=== PATIENT | female | born 1965 | race Caucasian/White ===

== ENCOUNTER 2021-08-26 08:09 | Emergency (ER) | payer OTHER ==
[~2021-08-26] VITALS: Ht 167.6 cm; Wt 93.0 kg
[2021-08-26] MEDS ORDERED: CELEBREX 200 M200 M1 PO (08:26)
[2021-08-26] MEDS ORDERED: LIPITOR 20 MG T20 M1 PO (08:27)
[2021-08-26] MEDS ORDERED: AMITRIPTYLINE H25 M3 PO (08:27)
[2021-08-26] MEDS ORDERED: NEURONTIN300 MG PO (08:28)
[2021-08-26] MEDS ORDERED: LISINOPRIL20 MG PO (08:28)
[2021-08-26] MEDS ORDERED: OMEPRAZOLE40 MG PO (08:28)
--- NOTE | 2021-08-26 10:54 | EKG ---
[place] [address] ELECTROCARDIOGRAM REPORT Name: ASHLEY LIM Room: [facility]#: [id number] Admission: 08/26/21 Attend Phys: Discharge: Date of : 65 Date of Service: 08/26/21 1036 Report #: [id number] THIS REPORT FOR: //name// [facility] ED Test Date: 2021-08-26 Test Time: 10:36:35 Pat Name: ASHLEY LIM Department: Room: Gender: F [employer]: : 1965 Requested By: [place] Order Number: [id number] MD: Mark Sadler Measurements Intervals Ernest Rate: 69 P: 23 NC: 170 QRS: 5 QRSD: 103 T: 11 QT: 394 QTc: 422 Interpretive Statements Sinus rhythm Low voltage, precordial leads Baseline wander in lead(s) I,III,aVR,aVL No previous ECG available for comparison Electronically Signed On 08-26-2021 10:54:38 [employer] WORK[employer] by Mark Sadler [email or web address] <ELECTRONICALLY SIGNED> By: Mark Sadler MD, [facility] 08/26/21 1054 1036 1036 Mark Sadler MD, [facility] /EPI
[2021-08-26 11:08] LABS: ABSOLUTE EOSINOPHILS 0.1 thou/uL (0.0-0.7); ABSOLUTE LYMPHOCYTES 1.2 thou/uL (0.8-5.3); ABSOLUTE MONOCYTES 0.5 thou/uL (0.0-1.2); ABSOLUTE NEUTROPHILS 8.1 thou/uL (1.6-8.1); BASOPHILS 0.5 %; EOSINOPHILS 1.2 %; HEMATOCRIT 43.8 % (37.0-47.0); HEMOGLOBIN 14.5 gm/dL (12.0-15.0); LYMPHOCYTES 11.9 %; MCH 29.4 pg (26.0-34.0); MCHC 33.2 g/dL (28.0-37.0); MCV 88.6 fL (80.0-100.0); MONOCYTES 4.9 %; MPV 8.1 fl. (7.2-11.1); NUCLEATED RBCS 0 /100WBC; PLATELET COUNT* 251 thou/uL (150-400); POLYS 81.5 %; RBC 4.95 mil/uL (4.20-5.00); RDW-CV 13.7 % (10.5-14.5)
[2021-08-26 11:15] LABS: CALCIUM 9.1 mg/dL (8.5-10.1); CREATININE 1.1 mg/dL (0.6-1.3); POTASSIUM 4.3 mmol/L (3.5-5.1)
[2021-08-26 11:20] LABS: ALBUMIN 3.5 g/dL (3.4-5.0); TOTAL BILIRUBIN 0.4 mg/dL (<0.1-1.0); TOTAL PROTEIN 7.5 g/dL (6.4-8.2)
[2021-08-26] MEDS ORDERED: BUTALB-APAP-CA1 EACH PO (12:10)
[2021-08-26] MEDS ORDERED: TRANSDERM-SCOP1 EACH TRANSDERM (12:10)
[2021-08-26] MEDS ORDERED: MECLIZINE HCL25 M1 PO (12:10)
[2021-08-26 12:25] LABS: URINE BILIRUBIN NEGATIVE (Negative); URINE BLOOD NEGATIVE (Negative); URINE CLARITY CLEAR; URINE COLOR YELLOW; URINE GLUCOSE-RANDOM NEGATIVE (Negative); URINE KETONES NEGATIVE (Negative); URINE LEUKOCYTES-REFLEX NEGATIVE (Negative); URINE NITRITE-REFLEX NEGATIVE (Negative); URINE PROTEIN NEGATIVE (Negative); URINE SPECIFIC GRAVITY <= 1.005 (1.005-1.030); URINE UROBILINOGEN 0.2 E.U./dl (0.2-1.0)
[2021-08-26 12:42] VITALS: BP 132/78
== END 2021-08-26 12:44 | disposition home or self-care (01) ==
LOC: M.ERS 08:09
PROVIDERS: Physician Assistant
DX: G43.909 Migraine, unspecified, not intractable, without status migrainosus (principal); R42 Dizziness and giddiness; I10 Essential (primary) hypertension; Z90.49 Acquired absence of other specified parts of digestive tract; Z91.040 Latex allergy status; Z79.899 Other long term (current) drug therapy